=== PATIENT | female | born 1955 | race Hispanic/Latino ===

== ENCOUNTER 2017-01-17 13:17 | Emergency (ER) | payer OTHER ==
[2017-01-17 13:34] VITALS: TEMP 98.2
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
[2017-01-17 14:58] VITALS: BP 145/88; PULSE 78; RESP 16
[2017-01-17 15:06] VITALS: O2SAT 99
--- NOTE | 2017-01-17 15:34 | RAD ---
PROCEDURE: Cervical Spine Radiographs. HISTORY: Pain. COMPARISON: None. FINDINGS: BONES: Vertebral bodies maintained in height. Normal alignment is maintained. The atlantoaxial articulation is maintained. The odontoid process is suboptimally evaluated in this examination. Odontoid DISC SPACES: Normal. SOFT TISSUES: Normal. No prevertebral soft tissue swelling. OTHER FINDINGS: None. IMPRESSION: No evidence of fracture or dislocation. Limited evaluation of odontoid process.
== END 2017-01-17 15:08 | disposition home or self-care (01) ==
LOC: C.ER 13:17
DX: S16.1XXA Strain of muscle, fascia and tendon at neck level, initial encounter (principal); V03.10XA Pedestrian on foot injured in collision with car, pick-up truck or van in traffic accident, initial encounter; Y92.414 Local residential or business street as the place of occurrence of the external cause